=== PATIENT | female | born 1940 | race Caucasian/White ===

== ENCOUNTER 2019-02-09 09:15 | Inpatient (IN) | payer MEDICARE, OTHER ==
[2019-01-27 14:37] LABS: BASOPHILS # (AUTO) 0.1 X10'3 (0-0.2); EOSINOPHILS # (AUTO) 0.3 X10'3 (0-0.9); EOSINOPHILS % (AUTO) 3.5 % (0-6); LYMPHOCYTES # (AUTO) 2.3 X10'3 (1.1-4.8); MEAN CORPUSCULAR HEMOGLOBIN 28.5 PG (27.0-31.0); MEAN CORPUSCULAR HGB CONC 32.1 g/dL (33.0-36.5); MEAN CORPUSCULAR VOLUME 88.7 FL (78-98); MEAN PLATELET VOLUME 6.9 FL (7.4-10.4); MONOCYTES # (AUTO) 0.6 X10'3 (0-0.9); MONOCYTES % (AUTO) 8.2 % (2-12); NEUTROPHILS # (AUTO) 4.5 X10'3 (1.8-7.7); NEUTROPHILS % (AUTO) 57.3 % (42-75); PRE OP HEMATOCRIT 41.7 % (35.0-45.0); PRE OP HEMOGLOBIN 13.4 g/dL (12.0-16.0); PRE OP PLATELET COUNT 323 X10'3 (140-440); RED CELL DISTRIBUTION WIDTH 14.9 % (11.5-14.5)
[2019-01-27 14:50] LABS: PRE OP INR 0.9 INR
[2019-01-27 14:56] LABS: ALBUMIN 3.2 G/DL (3.4-5.0); ALBUMIN/GLOBULIN RATIO 0.7 (1.1-1.5); ALKALINE PHOSPHATASE 121 IU/L (46-116); BLOOD UREA NITROGEN 10 MG/DL (7-18); BUN/CREATININE RATIO 13.5 (6.6-38.0); CALCIUM 9.1 MG/DL (8.5-10.1); CHLORIDE 104 MMOL/L (99-107); CREATININE 0.74 MG/DL (0.40-0.90); PRE OP ALT 35 U/L (30-65); PRE OP ANION GAP 6 (8-16); PRE OP AST 16 U/L (10-37); PRE OP BILIRUB, TOTAL 0.2 MG/DL (0.0-1.0); PRE OP GLUCOSE 134 MG/DL (70-104); PRE OP POTASSIUM 3.9 MMOL/L (3.4-5.1); PRE OP SODIUM 143 MMOL/L (135-145); TOTAL CARBON DIOXIDE 32.9 MMOL/L (24-32); TOTAL PROTEIN 7.6 G/DL (6.4-8.2); eGFR 76 ML/MIN
[~2019-02-09] VITALS: Ht 162.6 cm; Wt 90.6 kg
[2019-02-09] VITALS (17 sets, daily range): BP systolic 123–150; BP diastolic 61–83
[~2019-02-09 09:15] MED LIST: APIX5TAB3 PO; ATOR40TA PO; FLEC100T2 PO; PARO30TA4 PO
[2019-02-09] MEDS ORDERED: ROPIVAcaine 0.5% (5mg/ml) 30ml vial ONE ×2 (10:07→11:30)
[2019-02-09] MEDS ORDERED: ketorolac trometh. 30mg/ml inj. ONE (10:07)
[2019-02-09] MEDS ORDERED: cefazolin/dext.iso 2gm/50ml 50 ML IV ONE (10:30)
[2019-02-09] MEDS ORDERED: vancomycin inj 1,500 MG in normal saline 300ml IV soln IV ONE (10:30)
[2019-02-09] MEDS ORDERED: ringers solution, lacted 1,000 ML IV SCH ×2 (10:30→12:14)
[2019-02-09] MEDS ORDERED: famotidine 20mg tablet PO ONE (10:30)
[2019-02-09] MEDS ORDERED: tranexamic acid inj. 900 MG in normal saline 100ml IV soln 100 ML IV ONE ×4 (10:30)
[2019-02-09] MEDS ORDERED: fentaNYL/PF 50MCG/1 ML 2ML syringe ONE (10:45)
[2019-02-09] MEDS ORDERED: midazolam 2 mg/2 ml injection ONE ×2 (10:46)
[2019-02-09] MEDS ORDERED: sevoflurane 250ml liquid IH ONE (10:54)
[2019-02-09] MEDS ORDERED: ROPIVAcaine 0.2%/PF PAIN PUMP 550 ML IJ SCH (12:14)
[2019-02-09] MEDS ORDERED: HYDROmorphone inj. 0.5 MG/0.5 ML DISP.SYRIN IV PRN (12:15)
[2019-02-09] MEDS ORDERED: morphine 4 MG/ML inj SYRINge IV PRN (12:15)
[2019-02-09] MEDS ORDERED: ondansetron/PF 4mg/2ml inj IV PRN ×2 (12:15→13:10)
[2019-02-09] MEDS ORDERED: dexamethasone sod phosphate 4mg/ml inj. ONE (12:58)
[2019-02-09] MEDS ORDERED: glycopyrrolate 0.2mg/ml inj ONE (12:58)
[2019-02-09] MEDS ORDERED: propofol inj 20 ML IV ONE (12:58)
[2019-02-09] MEDS ORDERED: LIDOcaine 1%/PF 5ML 10 MG/ML VIAL ONE (12:58)
[2019-02-09] MEDS ORDERED: neostigmine methylsulfate 1 MG/ML 10ml vial ONE (12:58)
[2019-02-09] MEDS ORDERED: ondansetron/PF 4mg/2ml inj ONE (12:58)
[2019-02-09] MEDS ORDERED: rocuronium 10mg/ml inj IV ONE (12:58)
[2019-02-09] MEDS ORDERED: diphenhydrAMINE 25mg capsule PO PRN ×2 (13:10)
[2019-02-09] MEDS ORDERED: bisacodyl 10mg suppository rectal RC PRN (13:10)
[2019-02-09] MEDS ORDERED: magnesium hydroxide 30ml (MOM) UD suspension PO PRN (13:10)
[2019-02-09] MEDS ORDERED: acetaminophen 325mg tablet PO PRN (13:10)
--- NOTE | 2019-02-09 13:17 | NUR ---
Received from OR via , accompanied by Anesthesiologist DR ROBLERO and report given by Anesthesiolgist. AWAKENS TO VOICE. VITALS STABLE. DRESSING DI. BAUTISTA PAIN. RUE IN SIMPLE SLING.
[2019-02-09] MEDS ORDERED: flumazenil 0.1 mg/ml inj. IV ONE (13:46)
--- NOTE | 2019-02-09 14:17 | NUR ---
Report called to receiving nurse. Transferred via BED Belongings . Special Issues communicated to receiving nurse. AWAKE AND ORIENTED. VITALS STABLE. DRESSING DI. BAUTISTA PAIN. TO ORTHO RM 4012B AT THIS TIME.
[2019-02-09] MEDS: ceFAZolin 1GM/D5W- ADD-VANTAGE 50 ML IV SCH ×2 (16:49→23:58)
[2019-02-09] MEDS: potassium cl 20mEq in 1/2 NS 1,000 ML IV SCH ×2 (16:50→21:07)
--- NOTE | 2019-02-09 18:30 | NUR ---
Patient in room ORTHO 4012. I have received report from Colin ZAMORA and had the opportunity to ask questions and assume patient care.
--- NOTE | 2019-02-09 18:30 | NUR ---
Patient in room ORTHO 4012. I have received report from Colin ZAMORA and had the opportunity to ask questions and assume patient care. Addendum: 02/10/19 at 0620 by Alexandra Vera RN Repeated note
--- NOTE | 2019-02-09 18:38 | NUR ---
Problems reprioritized. Patient report given, questions answered & plan of care reviewed with Alexandra ZAMORA.
[2019-02-09] MEDS: apixaban 5mg tablet PO SCH (19:55)
[2019-02-09] MEDS: flecainide 50mg tablet PO SCH (19:55)
[2019-02-09] MEDS ORDERED: vancomycin/NS 1 GM ADD-VANTAGE 250 ML IV SCH (20:00)
[2019-02-09] MEDS: sennosides 8.6mg tablet PO SCH (20:10)
[2019-02-10 02:00] VITALS: BP_SYST 118; BP_SYST 142; BP_DIAS 61
[2019-02-10] MEDS: potassium cl 20mEq in 1/2 NS 1,000 ML IV SCH (02:54)
[2019-02-10 06:00] VITALS: BP 145/56
[2019-02-10 06:12] LABS: BASOPHILS % (AUTO) 0.1 % (0-1); EOSINOPHILS % (AUTO) 0 % (0-6); HEMATOCRIT 37.6 % (35.0-45.0); HEMOGLOBIN 12.4 g/dl (12.0-16.0); LYMPHOCYTES # (AUTO) 1.4 X10'3 (1.1-4.8); LYMPHOCYTES % (AUTO) 12.2 % (21-51); MEAN CORPUSCULAR HEMOGLOBIN 28.7 PG (27.0-31.0); MEAN CORPUSCULAR VOLUME 87.1 FL (78-98); MEAN PLATELET VOLUME 6.9 FL (7.4-10.4); MONOCYTES # (AUTO) 0.8 X10'3 (0-0.9); MONOCYTES % (AUTO) 6.9 % (2-12); NEUTROPHILS # (AUTO) 9.4 X10'3 (1.8-7.7); NEUTROPHILS % (AUTO) 80.8 % (42-75); PLATELET COUNT 317 X10'3 (140-440); RED BLOOD COUNT 4.31 X10'6 (4.20-5.60); RED CELL DISTRIBUTION WIDTH 14.8 % (11.5-14.5); WHITE BLOOD COUNT 11.6 X10'3 (4.5-11.0)
[2019-02-10 06:20] LABS: ANION GAP 6 (8-16); CHLORIDE 107 MMOL/L (99-107); POTASSIUM 4.6 MMOL/L (3.5-5.1); SODIUM 142 MMOL/L (135-145); TOTAL CARBON DIOXIDE 28.7 MMOL/L (24-32)
--- NOTE | 2019-02-10 06:35 | NUR ---
Problems reprioritized. Patient report given, questions answered & plan of care reviewed with Coleen ZAMORA and Veronica FRANKLIN.
[2019-02-10] MEDS ORDERED: atorvastatin 20mg tablet PO SCH ×2 (08:00→21:00)
[2019-02-10] MEDS ORDERED: PARoxetine 30mg tablet PO SCH (08:00)
[2019-02-10] MEDS: apixaban 5mg tablet PO SCH ×2 (09:30→20:05)
[2019-02-10] MEDS: flecainide 50mg tablet PO SCH ×2 (09:34→20:05)
[2019-02-10 10:00] VITALS: BP 149/43
[2019-02-10] MEDS ORDERED: HYDROcodone/acetaminophen 5mg/325mg tablet PO PRN ×2 (11:55)
[2019-02-10 14:00] VITALS: BP 158/59
[2019-02-10] MEDS ORDERED: PARoxetine 10mg tablet PO SCH (14:23)
--- NOTE | 2019-02-10 15:00 | NUR ---
Joint consult: Pt seen by EDGAR for written/verbal high protein ed; RD contact information provided. Pt agrees to gunner ya puddings TIDWM; dietary notified. Addendum: 02/10/19 at [address] Amended: Links added.
[2019-02-10 18:00] VITALS: BP 155/61
[2019-02-10] MEDS: sennosides 8.6mg tablet PO SCH (20:05)
[2019-02-10 22:00] VITALS: BP 139/61
[2019-02-11 05:59] LABS: BASOPHILS # (AUTO) 0.1 X10'3 (0-0.2); BASOPHILS % (AUTO) 0.8 % (0-1); EOSINOPHILS # (AUTO) 0.1 X10'3 (0-0.9); HEMATOCRIT 37.1 % (35.0-45.0); HEMOGLOBIN 12.2 g/dl (12.0-16.0); LYMPHOCYTES # (AUTO) 2.3 X10'3 (1.1-4.8); LYMPHOCYTES % (AUTO) 17.9 % (21-51); MEAN CORPUSCULAR HEMOGLOBIN 28.7 PG (27.0-31.0); MEAN CORPUSCULAR HGB CONC 32.9 g/dL (33.0-36.5); MEAN CORPUSCULAR VOLUME 87.3 FL (78-98); MEAN PLATELET VOLUME 6.8 FL (7.4-10.4); MONOCYTES # (AUTO) 1.3 X10'3 (0-0.9); MONOCYTES % (AUTO) 10.4 % (2-12); NEUTROPHILS # (AUTO) 8.8 X10'3 (1.8-7.7); NEUTROPHILS % (AUTO) 69.9 % (42-75); PLATELET COUNT 298 X10'3 (140-440); RED BLOOD COUNT 4.25 X10'6 (4.20-5.60); WHITE BLOOD COUNT 12.6 X10'3 (4.5-11.0)
[2019-02-11 06:00] VITALS: BP 137/52
--- NOTE | 2019-02-11 06:30 | NUR ---
Problems reprioritized. Patient report given, questions answered & plan of care reviewed with NOAH Horne.
[2019-02-11 10:16] VITALS: BP 130/58
[2019-02-11] MEDS: flecainide 50mg tablet PO SCH (10:26)
[2019-02-11] MEDS: apixaban 5mg tablet PO SCH (10:26)
== END 2019-02-11 10:50 | disposition home or self-care (01) | DRG 483 ==
LOC: EDSTATUS 09:15 → PAS IN 09:30 → EDSTATUS 12:30 → ORTHO 4S 14:30
PROVIDERS: ADMIT Orthopaedic Surgery; ATTEND Orthopaedic Surgery
PROC: 0LS30ZZ Reposition Right Upper Arm Tendon, Open Approach (ICD-10-PCS; 2019-02-09)
PROC: 0RRJ00Z Replacement of Right Shoulder Joint with Reverse Ball and Socket Synthetic Substitute, Open Approach (ICD-10-PCS; principal; 2019-02-09 10:54)
DX: M19.011 Primary osteoarthritis, right shoulder (principal); M25.511 Pain in right shoulder; M75.100 Unspecified rotator cuff tear or rupture of unspecified shoulder, not specified as traumatic; M65.9 Synovitis and tenosynovitis, unspecified; I48.91 Unspecified atrial fibrillation; Z86.73 Personal history of transient ischemic attack (TIA), and cerebral infarction without residual deficits; E78.5 Hyperlipidemia, unspecified; R32 Unspecified urinary incontinence
CPT/HCPCS: 36415; 80051; 80053; 82948; 85025; 85610; 85730; 87081; 93005; 97110; 97116; 97161; 97530; A4565; A4618; A7000; C1776; G0378; J0690; J1100; J1885; J2250; J2405; J2704; J2710; J2795; J3010; J3370; J3480; J3490; J7120

== ENCOUNTER 2019-02-13 23:08 | Emergency (ER) | payer MEDICARE, OTHER ==
[~2019-02-13] VITALS: Ht 162.6 cm; Wt 90.0 kg
[2019-02-14] MEDS ORDERED: ipratropium/albuterol 3ml nebule NEB ONE
--- NOTE | 2019-02-14 00:05 | NUR ---
held off on abg per dr bremudez request, at bedside with pt
[2019-02-14] MEDS ORDERED: iohexol 350MG/ML 100ml bottle IV ONE (00:17)
[2019-02-14 00:29] LABS: BASOPHILS # (AUTO) 0.1 X10'3 (0-0.2); BASOPHILS % (AUTO) 0.7 % (0-1); EOSINOPHILS # (AUTO) 0.4 X10'3 (0-0.9); EOSINOPHILS % (AUTO) 3.9 % (0-6); HEMOGLOBIN 11.7 g/dl (12.0-16.0); LYMPHOCYTES # (AUTO) 2.2 X10'3 (1.1-4.8); LYMPHOCYTES % (AUTO) 20.7 % (21-51); MEAN CORPUSCULAR HEMOGLOBIN 29.2 PG (27.0-31.0); MEAN CORPUSCULAR HGB CONC 33.5 g/dL (33.0-36.5); MEAN CORPUSCULAR VOLUME 87.3 FL (78-98); MEAN PLATELET VOLUME 7.1 FL (7.4-10.4); MONOCYTES # (AUTO) 1.1 X10'3 (0-0.9); MONOCYTES % (AUTO) 10.1 % (2-12); NEUTROPHILS % (AUTO) 64.6 % (42-75); PLATELET COUNT 313 X10'3 (140-440); RED BLOOD COUNT 4.01 X10'6 (4.20-5.60); RED CELL DISTRIBUTION WIDTH 14.4 % (11.5-14.5); WHITE BLOOD COUNT 10.8 X10'3 (4.5-11.0)
[2019-02-14 00:38] LABS: D-DIMER 0.91 MG/L FEU (0-0.50); PARTIAL THROMBOPLASTIN TIME 28 SECONDS (22-32)
[2019-02-14 00:39] LABS: ALANINE AMINOTRANSFERASE 38 U/L (12-78); ALBUMIN 2.5 G/DL (3.4-5.0); ALBUMIN/GLOBULIN RATIO 0.6 (1.1-1.5); ALKALINE PHOSPHATASE 91 IU/L (46-116); ANION GAP 6 (8-16); ASPARTATE AMINO TRANSFERASE 24 U/L (10-37); BILIRUBIN,TOTAL 0.4 MG/DL (0.1-1.0); BLOOD UREA NITROGEN 11 MG/DL (7-18); BUN/CREATININE RATIO 13.3 (6.6-38.0); CALCIUM 8.1 MG/DL (8.5-10.1); CHLORIDE 105 MMOL/L (99-107); CREATININE 0.83 MG/DL (0.40-0.90); GLUCOSE 173 MG/DL (70-104); POTASSIUM 3.9 MMOL/L (3.5-5.1); SODIUM 141 MMOL/L (135-145); TOTAL CARBON DIOXIDE 29.9 MMOL/L (24-32); TOTAL PROTEIN 6.9 G/DL (6.4-8.2); eGFR 67 ML/MIN
[2019-02-14 02:04] VITALS: BP 135/74
--- NOTE | 2019-02-14 02:09 | NUR ---
INSTRUCTED BY MD TO HOLD ABG AND RESPIRATORY TREATMENT.
== END 2019-02-14 02:09 | disposition home or self-care (01) ==
LOC: ER 23:09
DX: J98.11 Atelectasis (principal); I48.91 Unspecified atrial fibrillation; Z86.73 Personal history of transient ischemic attack (TIA), and cerebral infarction without residual deficits; Z88.2 Allergy status to sulfonamides; Z79.899 Other long term (current) drug therapy
CPT/HCPCS: 36415; 71045; 71275; 80053; 83880; 84484; 85025; 85379; 85610; 85730; 93005; 99284; Q9967

== ENCOUNTER 2021-02-16 21:12 | Emergency (ER) | payer MEDICARE ==
[~2021-02-16] VITALS: Ht 165.1 cm; Wt 90.9 kg
[~2021-02-16 21:12] MED LIST changes: +DEC4T PO; -FLEC100T2 PO; +FLEC50TA28 PO; +LEVO25TA7 PO; +PARO10TA4 PO; -PARO30TA4 PO
[2021-02-17 00:28] LABS: BASOPHILS % (AUTO) 0.6 % (0-1); EOSINOPHILS # (AUTO) 0.3 X10'3 (0-0.9); EOSINOPHILS % (AUTO) 3.2 % (0-6); HEMATOCRIT 36.7 % (35.0-45.0); HEMOGLOBIN 12.4 g/dl (12.0-16.0); LYMPHOCYTES # (AUTO) 2.5 X10'3 (1.1-4.8); LYMPHOCYTES % (AUTO) 29.8 % (21-51); MEAN CORPUSCULAR HEMOGLOBIN 29.9 PG (27.0-31.0); MEAN CORPUSCULAR HGB CONC 33.7 g/dL (33.0-36.5); MEAN CORPUSCULAR VOLUME 88.9 FL (78-98); MEAN PLATELET VOLUME 7.1 FL (7.4-10.4); MONOCYTES # (AUTO) 0.9 X10'3 (0-0.9); MONOCYTES % (AUTO) 10.4 % (2-12); NEUTROPHILS # (AUTO) 4.7 X10'3 (1.8-7.7); PLATELET COUNT 326 X10'3 (140-440); RED BLOOD COUNT 4.13 X10'6 (4.20-5.60); RED CELL DISTRIBUTION WIDTH 14.9 % (11.5-14.5); WHITE BLOOD COUNT 8.4 X10'3 (4.5-11.0)
[2021-02-17 01:06] LABS: ALBUMIN 3.3 G/DL (3.4-5.0); ANION GAP 8 (8-16); BLOOD UREA NITROGEN 16 MG/DL (7-18); CALCIUM 9.2 MG/DL (8.5-10.1); CHLORIDE 103 MMOL/L (99-107); GLUCOSE 146 MG/DL (70-104); POTASSIUM 3.8 MMOL/L (3.5-5.1); SODIUM 141 MMOL/L (135-145); TOTAL CARBON DIOXIDE 30.1 MMOL/L (24-32); eGFR 69 ML/MIN
[2021-02-17] MEDS ORDERED: CEPH-585 PO (01:39)
[2021-02-17] MEDS ORDERED: NITR100C6 PO (01:39)
[2021-02-17] MEDS ORDERED: cephalexin 500mg capsule PO ONE (01:45)
[2021-02-17] MEDS ORDERED: sulfamethoxazole/trimethoprim DS (800/160mg) tablet PO ONE (01:45)
[2021-02-17 02:02] VITALS: BP 141/68
== END 2021-02-17 02:06 | disposition home or self-care (01) ==
LOC: ER 21:13
DX: L03.116 Cellulitis of left lower limb (principal); M25.562 Pain in left knee; Z86.73 Personal history of transient ischemic attack (TIA), and cerebral infarction without residual deficits; Z79.2 Long term (current) use of antibiotics; Z79.899 Other long term (current) drug therapy
CPT/HCPCS: 36415; 73564; 80048; 85025; 99284

== ENCOUNTER 2022-08-20 07:28 | Emergency (ER) | payer MEDICARE ==
[~2022-08-20] VITALS: Ht 165.1 cm; Wt 84.1 kg
[~2022-08-20 07:28] MED LIST changes: -DEC4T PO
[2022-08-20] MEDS ORDERED: FLUT16SP2 BOTHNARES (08:54)
[2022-08-20] MEDS ORDERED: CETI10TA15 PO (08:54)
[2022-08-20] MEDS ORDERED: AZIT-31 PO (10:56)
[2022-08-20 11:05] VITALS: BP 123/68
== END 2022-08-20 11:11 | disposition home or self-care (01) ==
LOC: ER 07:28
DX: J32.9 Chronic sinusitis, unspecified (principal); Z20.822 Contact with and (suspected) exposure to COVID-19; R53.81 Other malaise
CPT/HCPCS: 87502; 87503; 87811; 99283

== ENCOUNTER 2022-09-03 15:24 | Emergency (ER) | payer MEDICARE ==
[~2022-09-03] VITALS: Ht 165.1 cm; Wt 86.0 kg
[~2022-09-03 15:24] MED LIST changes: +CETI10TA15 PO; +FLUT16SP2 BOTHNARES
[2022-09-03] MEDS ORDERED: normal saline 1000ML IV soln IVB ONE (15:45)
[2022-09-03 15:49] VITALS: BP 145/64
[2022-09-03 15:55] LABS: EOSINOPHILS # (AUTO) 0.3 X10'3 (0-0.9); MONOCYTES # (AUTO) 0.5 X10'3 (0-0.9)
[2022-09-03 15:56] LABS: BASOPHILS # (AUTO) 0.1 X10'3 (0-0.2); BASOPHILS % (AUTO) 1.5 % (0-1); EOSINOPHILS % (AUTO) 5.3 % (0-6); HEMATOCRIT 40.3 % (35.0-45.0); HEMOGLOBIN 13.4 g/dl (12.0-16.0); LYMPHOCYTES # (AUTO) 2.2 X10'3 (1.1-4.8); LYMPHOCYTES % (AUTO) 33.5 % (21-51); MEAN CORPUSCULAR HEMOGLOBIN 29.4 PG (27.0-31.0); MEAN CORPUSCULAR HGB CONC 33.3 g/dL (33.0-36.5); MEAN CORPUSCULAR VOLUME 88.4 FL (78-98); MEAN PLATELET VOLUME 6.7 FL (7.4-10.4); NEUTROPHILS # (AUTO) 3.3 X10'3 (1.8-7.7); NEUTROPHILS % (AUTO) 51.7 % (42-75); PLATELET COUNT 314 X10'3 (140-440); RED BLOOD COUNT 4.56 X10'6 (4.20-5.60); WHITE BLOOD COUNT 6.5 X10'3 (4.5-11.0)
[2022-09-03 16:05] LABS: ALANINE AMINOTRANSFERASE 39 U/L (12-78); ALBUMIN 3.2 G/DL (3.4-5.0); ALBUMIN/GLOBULIN RATIO 0.8 (1.1-1.5); ALKALINE PHOSPHATASE 90 IU/L (46-116); ANION GAP 5 (8-16); ASPARTATE AMINO TRANSFERASE 20 U/L (10-37); BILIRUBIN,TOTAL 0.3 MG/DL (0.1-1.0); BLOOD UREA NITROGEN 12 MG/DL (7-18); BUN/CREATININE RATIO 17.4 (10.0-20.0); CALCIUM 9.4 MG/DL (8.5-10.1); CHLORIDE 105 MMOL/L (99-107); CREATININE 0.69 MG/DL (0.40-0.90); GLUCOSE 150 MG/DL (70-104); SODIUM 142 MMOL/L (135-145); TOTAL PROTEIN 7.3 G/DL (6.4-8.2); eGFR 82 ML/MIN
== END 2022-09-03 20:10 | disposition home or self-care (01) ==
LOC: ER 15:25
DX: E86.0 Dehydration (principal); J32.9 Chronic sinusitis, unspecified; R53.1 Weakness
CPT/HCPCS: 36415; 70450; 80053; 83735; 83880; 84484; 85025; 93005; 96360; 96361; 99284; J7030

== ENCOUNTER 2023-11-11 11:02 | Emergency (ER) | payer MEDICARE ==
[~2023-11-11] VITALS: Ht 165.1 cm; Wt 86.8 kg
[~2023-11-11 11:02] MED LIST changes: +ASPI-1071 PO; -CETI10TA15 PO
[2023-11-11 12:11] VITALS: BP 158/74; PULSE 79; TEMP 98.3; O2SAT 96
[2023-11-11 13:06] LABS: BASOPHILS # (AUTO) 0.1 X10'3 (0-0.2); BASOPHILS % (AUTO) 0.7 % (0-1); EOSINOPHILS # (AUTO) 0.2 X10'3 (0-0.9); EOSINOPHILS % (AUTO) 2.2 % (0-6); HEMATOCRIT 44.7 % (35.0-45.0); HEMOGLOBIN 14.6 g/dl (12.0-16.0); LYMPHOCYTES # (AUTO) 2.1 X10'3 (1.1-4.8); LYMPHOCYTES % (AUTO) 27.2 % (21-51); MEAN CORPUSCULAR HEMOGLOBIN 29.4 PG (27.0-31.0); MEAN CORPUSCULAR HGB CONC 32.7 g/dL (33.0-36.5); MEAN CORPUSCULAR VOLUME 89.9 FL (78-98); MEAN PLATELET VOLUME 6.7 FL (7.4-10.4); MONOCYTES # (AUTO) 0.5 X10'3 (0-0.9); MONOCYTES % (AUTO) 6.8 % (2-12); NEUTROPHILS # (AUTO) 4.9 X10'3 (1.8-7.7); NEUTROPHILS % (AUTO) 63.1 % (42-75); PLATELET COUNT 323 X10'3 (140-440); RED BLOOD COUNT 4.97 X10'6 (4.20-5.60); RED CELL DISTRIBUTION WIDTH 14.2 % (11.5-14.5); WHITE BLOOD COUNT 7.8 X10'3 (4.5-11.0)
[2023-11-11 13:23] LABS: ALBUMIN 3.7 G/DL (3.4-5.0); ANION GAP 9 (8-16); BLOOD UREA NITROGEN 8 MG/DL (7-18); BUN/CREATININE RATIO 11.3 (10.0-20.0); CALCIUM 9.8 MG/DL (8.5-10.1); CHLORIDE 103 MMOL/L (99-107); CREATININE 0.71 MG/DL (0.40-0.90); GLUCOSE 105 MG/DL (70-104); POTASSIUM 4.1 MMOL/L (3.5-5.1); PRO BRAIN NATRIURETIC PEPTIDE 171 PG/ML (0-450); SODIUM 142 MMOL/L (135-145); TOTAL CARBON DIOXIDE 30.2 MMOL/L (24-32); eCRCL 56 ML/MIN; eGFR 79 ML/MIN
[2023-11-11 14:26] VITALS: RESP 18
[2023-11-11] MEDS ORDERED: CEFD300C3 PO (14:41)
== END 2023-11-11 15:03 | disposition home or self-care (01) ==
LOC: ER 11:02
DX: J20.9 Acute bronchitis, unspecified (principal); Z79.51 Long term (current) use of inhaled steroids; Z79.82 Long term (current) use of aspirin; Z79.899 Other long term (current) drug therapy
CPT/HCPCS: 36415; 71046; 80048; 83880; 85025; 87040; 99284

== ENCOUNTER 2024-05-14 12:06 | Emergency (ER) | payer MEDICARE ==
[~2024-05-14] VITALS: Ht 165.1 cm; Wt 86.4 kg
[2024-05-14 12:32] VITALS: TEMP 98.4
[2024-05-14 13:28] LABS: BILIRUBIN,URINE NEGATIVE (Neg); CLARITY,URINE CLEAR (Clear); COLOR,URINE STRAW (Yellow); GLUCOSE, URINE NEGATIVE (Neg); KETONES,URINE NEGATIVE (Neg); LEUKOCYTE ESTERASE ,URINE NEGATIVE (Neg); NITRITES, URINE NEGATIVE (Neg); OCCULT BLOOD,URINE NEGATIVE (Neg); PH,URINE 7.5 (4.8-8.0); PROTEIN,URINE NEGATIVE (Neg); UROBILINOGEN,URINE 0.2 E.U/dL (0.2-1.0)
[2024-05-14 13:31] LABS: UA COLLECTION TYPE NON-SPECIFIED
[2024-05-14 13:33] LABS: ALANINE AMINOTRANSFERASE 24 U/L (12-78); ALBUMIN 3.3 G/DL (3.4-5.0); ALBUMIN/GLOBULIN RATIO 0.7 (1.1-1.5); ALKALINE PHOSPHATASE 121 IU/L (46-116); ANION GAP 4 (8-16); ASPARTATE AMINO TRANSFERASE 15 U/L (10-37); BASOPHILS # (AUTO) 0.1 X10'3 (0-0.2); BILIRUBIN,TOTAL 0.3 MG/DL (0.1-1.0); BLOOD UREA NITROGEN 11 MG/DL (7-18); BUN/CREATININE RATIO 14.9 (10.0-20.0); CHLORIDE 105 MMOL/L (99-107); CREATININE 0.74 MG/DL (0.40-0.90); EOSINOPHILS # (AUTO) 0.2 X10'3 (0-0.9); EOSINOPHILS % (AUTO) 4.4 % (0-6); GLUCOSE 113 MG/DL (70-104); HEMATOCRIT 38.3 % (35.0-45.0); HEMOGLOBIN 12.5 g/dl (12.0-16.0); LIPASE 23 U/L (16-77); LYMPHOCYTES # (AUTO) 1.8 X10'3 (1.1-4.8); LYMPHOCYTES % (AUTO) 32.1 % (21-51); MEAN CORPUSCULAR HEMOGLOBIN 29.3 PG (27.0-31.0); MEAN CORPUSCULAR HGB CONC 32.7 g/dL (33.0-36.5); MEAN CORPUSCULAR VOLUME 89.7 FL (78-98); MEAN PLATELET VOLUME 6.9 FL (7.4-10.4); MONOCYTES # (AUTO) 0.5 X10'3 (0-0.9); MONOCYTES % (AUTO) 8.9 % (2-12); NEUTROPHILS % (AUTO) 53.6 % (42-75); PLATELET COUNT 344 X10'3 (140-440); POTASSIUM 4.1 MMOL/L (3.5-5.1); RED BLOOD COUNT 4.27 X10'6 (4.20-5.60); SODIUM 141 MMOL/L (135-145); TOTAL CARBON DIOXIDE 31.7 MMOL/L (24-32); TOTAL PROTEIN 7.8 G/DL (6.4-8.2); WHITE BLOOD COUNT 5.6 X10'3 (4.5-11.0); eCRCL 53 ML/MIN; eGFR 75 ML/MIN
[2024-05-14] MEDS ORDERED: iohexol 300mg/ml 100ml inj. ONE (14:15)
[2024-05-14 15:56] VITALS: BP 138/74; PULSE 80; RESP 16; O2SAT 95
== END 2024-05-14 15:58 | disposition home or self-care (01) ==
LOC: ER 12:06
DX: N20.0 Calculus of kidney (principal); I48.91 Unspecified atrial fibrillation; Z86.73 Personal history of transient ischemic attack (TIA), and cerebral infarction without residual deficits; Z79.82 Long term (current) use of aspirin; Z79.52 Long term (current) use of systemic steroids; Z79.899 Other long term (current) drug therapy
CPT/HCPCS: 36415; 74177; 80053; 81003; 83690; 85025; 99285; Q9967